=== PATIENT | female | born 1975 | race Caucasian/White ===

== ENCOUNTER → 2018-09-14 | Day surgery (SDC) | payer OTHER | END | disposition home or self-care (01) | LOC: EDSTATUS 09-07 14:00 → CIR.AMB 08:30 → EDBD 14:00 → CIR.AMB 14:00 | DX: N84.0 Polyp of corpus uteri (principal) ==

== ENCOUNTER 2019-12-13 08:35 | Day surgery (SDC) | payer OTHER | END 2019-12-13 18:00 | disposition home or self-care (01) | LOC: CIR.AMB 08:35 → ADM 11:00 → CIR.AMB 11:00 | PROVIDERS: ATTEND Obstetrics & Gynecology | DX: N85.01 Benign endometrial hyperplasia (principal); Z20.828 Contact with and (suspected) exposure to other viral communicable diseases ==